=== PATIENT | male | born 1995 | race Two or more races ===

== ENCOUNTER 2025-05-19 21:59 | Emergency (ER) | payer MEDICAID, SELFPAY ==
[2025-05-19 22:14] VITALS: BP 130/64; PULSE 69; RESP 19; TEMP 36.7; O2SAT 99
--- NOTE | 2025-05-19 22:38 | PD.EDALLER ---
ED Allergic Reaction RME/HPI General Chief complaint: Allergic Reaction Stated complaint: Allergic reaction INDOMETHACIN /swollen eye/lip Time Seen by Provider: 05/19/25 22:02 Source: patient and family Arrival date/time: 05/19/25 21:59 Limitations: no limitations RME / HPI RME / HPI narrative: Patient is a 29-year-old male is here today with his sister. He states he developed lip swelling 1 or 2 hours prior to his arrival. He has no known allergies other than amoxicillin and penicillin. He does state he took some indomethacin from his friend of his for his headache prior to this. He has no vomiting or syncope. No urticaria. He has no other acute complaints. Related Data Previous Rx's ?Medication ?Instructions ?Recorded ibuprofen 600 mg tablet 600 mg PO Q6H #30 tabs 08/02/24 diphenhydramine HCl 25 mg capsule 25 mg PO TID PRN allergic reaction 05/19/25 (Banophen) #14 caps prednisone 50 mg tablet 50 mg PO QDAY 5 days #5 tabs 05/19/25 Allergies Allergy/AdvReac Type Severity Reaction Status Date / Time Penicillins Allergy Severe Swelling Verified 08/02/24 13:05 of Lip/Tongue/Throat amoxicillin Allergy Intermediate Swelling Verified 08/02/24 13:05 of the Eye indomethacin Allergy Swelling Verified 05/19/25 22:02 of the Eye Review of Systems Review of Systems Systems Reviewed: All systems reviewed, normal except as documented ED Exam General Limitations: Present no limitations General appearance: Present alert and in no apparent distress Head Head exam: Present atraumatic Eye Eye exam: Present normal appearance, PERRL and EOMI ENT ENT exam: Present normal oropharynx, mucous membranes moist and other (Voice is not hoarse. There is no trismus. There is mild edema of the upper and lower lip.) Neck Neck exam: Present normal inspection, full ROM and trachea midline Chest Chest inspection: Present normal inspection and symmetric chest wall rise Respiratory Respiratory exam: Present normal lung sounds bilaterally Cardiovascular Cardiovascular exam: Present regular rate, normal rhythm and normal heart sounds Abdominal Exam Abdominal exam: Present soft and normal bowel sounds; Absent tenderness, guarding, rebound or rigidity Extremities Exam Extremities exam: Present normal inspection and full ROM Back Exam Back exam: Present normal inspection and full ROM Neurological Exam Neurological exam: Present alert and oriented X3 Psychiatric Psychiatric exam: Present normal affect and normal mood Skin Skin exam: Present warm, dry, intact and normal color Course Quality Measures none Orders Category Date Time Status DiphenhydrAMINE [Benadryl] Med 05/19/25 22:02 Discontinued 25 mg PO X1 ONE dexAMETHasone TAB [Decadron Tab] Med 05/19/25 22:15 Discontinued 8 mg PO X1 ONE Vital Signs Vital signs: Vital Signs Temperature 98.0 F 05/19/25 22:14 Pulse Rate 69 05/19/25 22:14 Respiratory Rate 19 05/19/25 22:14 Blood Pressure 130/64 05/19/25 22:14 Pulse Oximetry (%) 99 05/19/25 22:14 Oxygen Delivery Method Room Air 05/19/25 22:14 Allergic Reaction MDM Narrative MDM Narrative:: Patient is a 29-year-old male is here today with his sister. He states he developed lip swelling 1 or 2 hours prior to his arrival. He has no known allergies other than amoxicillin and penicillin. He does state he took some indomethacin from his friend of his for his headache prior to this. He has no vomiting or syncope. No urticaria. He has no other acute complaints. On exam, patient is nontoxic-appearing in no visible signs of respiratory distress. Vital signs are stable. He has mild edema at the upper and lower lip. No other facial edema is present time my exam. He is given a dose of Benadryl and Decadron here. He will be sent with a prescription of prednisone and diphenhydramine to use for the next few days. He is advised to avoid common allergens such as tree nuts, berries, or seafood. Avoid the use of indomethacin or medications that are not prescribed to him in the future. Follow-up with his primary doctor within the next week. Return at anytime for any worsening or emergent changes. Patient data External records reviewed:: None Clinical information provided by:: patient and family Social determinants that could affect healthcare access:: none Patient has the following chronic illnesses:: n/a How is presenting disease/condition affected by chronic disease/condition?: no chronic disease Evaluation data The following diagnostics were reviewed and interpreted by me:: other (specify) Lab and/or radiology exams considered but not ordered:: n/a Interpretation Summary: n/a Medications / Prescriptions Medications or Prescriptions considered but not ordered:: n/a Medication administrations:: Medication Administration History Discontinued Medications Dexamethasone (Dexamethasone 4 Mg Tablet) 8 mg PO X1 ONE; Protocol Stop: 05/19/25 22:16 Last Admin: 05/19/25 22:14 Dose: 8 mg Documented By: YASH Diphenhydramine HCl (Diphenhydramine 25 Mg Capsule) 25 mg PO X1 ONE Stop: 05/19/25 22:03 Last Admin: 05/19/25 22:14 Dose: 25 mg Documented By: YASH See above Consultations Consultation(s) initiated? (list below): No Diagnosis Differential Diagnosis allergic reaction: allergic reaction, angioedema, contact dermatitis and adverse reaction to drug Most likely diagnosis given after review of the tests above:: Allergic reaction Admission Indicated Admission indicated?: not indicated Admission Request Was there a request for admission?: No Disposition Plan Disposition Plan: Discharge Discharge Attestation Discharge Attestation: The patient and all family members were given an opportunity to ask questions and understood the discharge instructions. Discharge instructions specifically effects, indications for sooner follow up or return to the emergency department, and the expected course of current diagnosis. Patient condition: Stable Discharge Plan Plan Patient Disposition: HOME (Self Care) Patient condition on transfer: Stable Prescriptions/Referrals Prescriptions/Med Rec: New diphenhydramine HCl [Banophen] 25 mg capsule 25 mg PO TID PRN (Reason: allergic reaction) Qty: 14 0RF prednisone 50 mg tablet 50 mg PO QDAY 5 Days Qty: 5 0RF No Action ibuprofen 600 mg tablet 600 mg PO Q6H Qty: 30 0RF Referrals: Anabelle Beasley NP [Primary Care Provider] - In 1 week Problem List Clinical Impression: Allergic reaction Patient/Caregiver Discharge Instructions Education Materials: ED Medicine Reaction: Allergic Additional Instructions: - Avoid common allergens such as tree nuts, berries, and seafood. - Do not use prescription medications that are not prescribed to you in the future. - Use the provided medication as prescribed to counteract your edema. - Contact your primary clinic tomorrow to schedule close follow-up appointment. - Please return to the emergency room at anytime for any worsening changes including worsening swelling, difficulty breathing, shortness of breath, near syncope. Print Language: [employer] Stand Alone Forms: Natasha Award Info., Patient Portal Info Letter
== END 2025-05-19 22:58 | disposition home or self-care (01) ==
PROVIDERS: Emergency Provider Emergency Medicine; PCP Nurse Practitioner Family
DX: T78.40XA Allergy, unspecified, initial encounter (principal); R22.0 Localized swelling, mass and lump, head; T39.395A Adverse effect of other nonsteroidal anti-inflammatory drugs [NSAID], initial encounter
CPT/HCPCS: 99282; J8540; A9270